=== PATIENT | male | born 1960 | race Caucasian/White ===

== ENCOUNTER 2021-09-19 19:40 | Day surgery (SDC) | payer BC ==
[~2021-09-19] VITALS: Ht 190.5 cm; Wt 109.0 kg
[~2021-09-19 19:40] MED LIST: AMOXICILLIN 8751 TAB PO; FLOMAX 0.40.4 MG/CAP PO; NORCO 325 MG-51 TAB PO
[2021-09-19 20:00] VITALS: BP 148/96; PULSE 80; TEMP 98.1
--- NOTE | 2021-09-19 20:28 | NUR ---
Pt. arrived to the floor. Pt. is A&OX3, assessment complete. INT to lt. hand. Pt. denies pain at this time. IV fluids started to IV. Pt. sent to OR.
[2021-09-19] MEDS ORDERED: NORCO 325 MG-51 TAB PO (21:04)
[2021-09-19] MEDS ORDERED: PYRIDIUM 100MG100 MG PO (21:04)
[2021-09-19 21:30] VITALS: BP 122/88; PULSE 62; TEMP 97.4
--- NOTE | 2021-09-19 21:30 | NUR ---
Pt. returned from PACU. Pt. stable at this time. Will monitor.
[2021-09-19 21:45] VITALS: BP 126/87; PULSE 55; TEMP 97.4
[2021-09-19 22:00] VITALS: BP 120/77; PULSE 60; TEMP 97.4
[2021-09-19 22:15] VITALS: BP 125/70; PULSE 62; TEMP 97.5
--- NOTE | 2021-09-19 22:40 | NUR ---
Pt. has met discharge criteria. Pt. given discharge education and instructions. Pt. voices understanding. INT discontinued from lt. hand. Pt. dressed and escorted out by JORDY Crespo.
== END 2021-09-19 22:45 | disposition home or self-care (01) ==
LOC: SDCO 19:40 → SURG 19:46 → SDCO 22:45
DX: N20.1 Calculus of ureter (principal); N13.2 Hydronephrosis with renal and ureteral calculous obstruction
CPT/HCPCS: OP; C1769; C2617; J0690; J1100; J1885; J2405; J2704; J3010; Q9967

== ENCOUNTER 2021-11-18 17:50 | Observation (INO) | payer BC ==
[2021-11-18] VITALS (8 sets, daily range): BP systolic 115–142; BP diastolic 77–90; PULSE 70–91; TEMP 97.5–97.9
[~2021-11-18] VITALS: Ht 190.5 cm; Wt 109.0 kg
[~2021-11-18 17:50] MED LIST changes: +PYRIDIUM 100MG100 MG PO
[2021-11-18] MEDS ORDERED: MOTRIN 600600 MG/TAB PO (18:14)
--- NOTE | 2021-11-18 19:17 | NUR ---
SHIFT REPORT FROM PRABHU ADLER. PATIENT IN OR AT THIS TIME. IN ROOM.
[2021-11-18 21:07] LABS: BASO % 0.4 % (0.0-2.0); EOS # 0.1 K/mm3 (0.0-0.7); EOS % 1.1 % (0.0-4.0); GRAN # 7.8 K/mm3 (1.4-6.5); GRAN % 83.4 % (42.2-75.2); HEMATOCRIT 47.3 % (42.0-52.0); HEMOGLOBIN 15.9 g/dl (13.5-18.0); LYMPH % 11.1 % (20.0-51.0); MEAN CELL VOLUME 87 fl (80.0-100.0); MEAN CORPUSCULAR HEMOGLOBIN 29 pg (27-31); MEAN CORPUSCULAR HGB CONC 34 g/dl (33.0-37.0); MEAN PLATELET VOLUME 9.9 fl (7.4-10.4); MONO # 0.4 K/mm3 (0.1-0.6); MONO % 3.7 % (1.7-9.3); PLATELET COUNT 182 K/mm3 (130-400); RED BLOOD COUNT 5.45 M/mm3 (4.20-5.60); REDCELL DISTRIBUTION WIDTH-CV 13.8 % (11.5-14.5)
[2021-11-18 21:23] LABS: ALBUMIN 4.3 gm/dL (3.4-4.8); BILIRUBIN,TOTAL 2.8 mg/dL (0.2-1.2); CALCIUM 9.2 mg/dL (8.4-10.2); CREATININE, serum 1.24 mg/dL (0.72-1.25); PHOSPHOROUS 2.5 mg/dL (2.3-4.7); POTASSIUM 4.2 mmol/L (3.5-4.5); TOTAL PROTEIN 7.5 gm/dL (6.2-8.1)
[2021-11-18 21:29] LABS: TROPONIN-I 0.012 ng/mL (0.00-0.033)
[2021-11-19 01:15] VITALS: BP 136/76; PULSE 79; TEMP 97.7
--- NOTE | 2021-11-19 02:56 | NUR ---
PATIENT UP TO FLOOR. ALERT AND ORIENTED. AT BEDSIDE. PATIENT TOLERATED PO FOOD AND FLUIDS. AMBULATED TO BATHROOM WITH STANDBY ASSIST AND VOIDED. PATIENT C/O MODERATE PAIN AND PRN NORCO AND DILAUDID WAS GIVEN WITH GOOD RELIEF AFTER THE DILAUDID. PATIENT AMBULATING IN HALLS INDEPENDENTLY. IVF STARTED. DENIES ADDITIONAL NEEDS. CALL LIGHT IN REACH.
[2021-11-19 04:51] VITALS: BP 122/76; PULSE 69; TEMP 97.4
--- NOTE | 2021-11-19 06:30 | NUR ---
CARDS CONSULT CALLED TO DR FABIAN AT 0630.
[2021-11-19 07:44] VITALS: BP 139/79; PULSE 69; TEMP 97.6
[2021-11-19] MEDS ORDERED: ASPIRIN 81M81 MG/TA2 PO (12:10)
[2021-11-19] MEDS ORDERED: TOPROL XL 25MG25 MG PO ×2 (12:10→12:47)
[2021-11-19] MEDS ORDERED: ASPIRIN E.C. 8181 MG PO (12:47)
--- NOTE | 2021-11-19 12:58 | NUR ---
PATIENT DISCHARGE PATCKET AND EDUCATION PROVIDED. ALL QUESTIONS ANSWERED. IV REMOVED PER PROTOCOL. PATIENT SAFELY TRANSPORTED TO ER ENTRANCE VIA FAMILY AND STAFF FOR DISCHARGE.
[2021-11-21] MEDS ORDERED: NORCO 325 MG-51 TAB PO (09:15)
== END 2021-11-19 12:59 | disposition home or self-care (01) ==
LOC: SURG 17:50
PROVIDERS: Nurse Practitioner Family; ADMIT Surgery
DX: K35.80 Unspecified acute appendicitis (principal); K38.8 Other specified diseases of appendix; E66.9 Obesity, unspecified
CPT/HCPCS: G0378; J1100; J1170; J2405; J2704; J3010; J7030; J7120